=== PATIENT | female | born 1985 | race Caucasian/White ===

== ENCOUNTER → 2017-12-17 09:54 | Outpatient (CLI) | payer OTHER, MEDICAID, SELFPAY ==
[2017-12-17 11:37] LABS: Alanine Aminotransferase 17 IU/L (9-52); Albumin 3.4 g/dL (3.5-5.0); Alkaline Phosphatase 61 U/L (38-126); Aspartate Aminotransferase 11 IU/L (14-36); Bilirubin Total 0.2 mg/dL (0.2-1.3); Blood Urea Nitrogen 7 mg/dL (7-17); Calcium 9.4 mg/dL (8.4-10.2); Carbon Dioxide 23 mmol/L (22-32); Chloride 103 mmol/L (98-107); Estimated Glomerular Filt Rate > 60.0 mL/min (>60); Globulin 3.3 g/dL (1.7-4.1); Glucose 144 mg/dL (70-100); HEMOLYSIS < 15 (0-50); Potassium 3.9 mmol/L (3.4-5.1); Sodium 137 mmol/L (137-145); Total Protein 6.7 g/dL (6.3-8.2)
[2017-12-17 16:03] LABS: Collection Time Urine 24 Hours; Protein (Total) Urine Random 18 mg/dL (0-12); Total Protein 24 Hour Urine 540 mg/day (42-225); Total Volume Urine 3000 mL
== END ==
PROVIDERS: PCP Family Medicine; Visit Provider Family Medicine
DX: I10 Essential (primary) hypertension (principal); Z34.83 Encounter for supervision of other normal pregnancy, third trimester
CPT/HCPCS: 36415; 80053; 84156

== ENCOUNTER 2017-12-23 13:58 | Outpatient (CLI) | payer OTHER, MEDICAID, SELFPAY ==
--- NOTE | 2017-12-23 15:22 | PM.OBTRLD ---
Visit Information Visit Information Date of evaluation: 12/23/17 Primary OB Provider: Rosalva Linn On-call OB Provider: Rosalva Linn Reason for Evaluation: Yes non-stress test PFSH Surgical History Salpingo-oophoritis following molar or ectopic (Resolved 2013) Status post knee surgery (Resolved 2001) Status post knee surgery (Resolved 2003) Social History Smoking Status: Former smoker Evaluation Evaluation Baseline heart rate: 130 Variability: Moderate (11-25) monitor accelerations: Present monitor decelerations: Absent Category of Tracing: I Diagnosis, Plan/Disposition Final Diagnosis (1) Essential hypertension: Current Visit: Yes Status: Suspected (2) Proteinuria: Current Visit: Yes Status: Acute (3) Supervision of high risk in third trimester: Current Visit: Yes Status: Acute Plan/Disposition Plan: Continue twice weekly NST with weekly [facility] Disposition: home
== END 2017-12-23 15:30 | disposition home or self-care (01) ==
LOC: LABOR 14:53 → OB 12-24 14:50
PROVIDERS: Family Provider Family Medicine; PCP Family Medicine; Visit Provider Family Medicine
DX: O16.3 Unspecified maternal hypertension, third trimester (principal); Z3A.32 32 weeks gestation of pregnancy
CPT/HCPCS: 59025; G0378; G0379

== ENCOUNTER 2017-12-26 09:55 | Outpatient (CLI) | payer OTHER, MEDICAID, SELFPAY ==
--- NOTE | 2017-12-26 11:06 | PM.OBTRLD ---
Visit Information Visit Information Date of evaluation: 12/26/17 Primary OB Provider: Rosalva Linn Reason for Evaluation: Yes non-stress test PFSH Medical History Supervision of high risk in third trimester (Acute) Proteinuria (Acute) Essential hypertension (Suspected 07/23/16) Surgical History Salpingo-oophoritis following molar or ectopic (Resolved 2013) Status post knee surgery (Resolved 2001) Status post knee surgery (Resolved 2003) Social History Smoking Status: Former smoker Evaluation Evaluation Baseline heart rate: 145 Variability: Moderate (11-25) monitor accelerations: Present monitor decelerations: Absent Diagnosis, Plan/Disposition Plan/Disposition Plan: Reactive NST Discharge to home Continue twice weekly NST with weekly [facility] Disposition: home
== END 2017-12-26 11:10 | disposition home or self-care (01) ==
LOC: LABOR 10:51 → OB 14:29
PROVIDERS: Family Provider Family Medicine; PCP Family Medicine; Visit Provider Family Medicine
DX: O26.23 Pregnancy care for patient with recurrent pregnancy loss, third trimester (principal); Z3A.33 33 weeks gestation of pregnancy
CPT/HCPCS: 59025; G0378; G0379

== ENCOUNTER 2017-12-30 14:01 | Observation (INO) | payer OTHER, MEDICAID, SELFPAY ==
--- NOTE | 2017-12-30 15:29 | PM.OBTRLD ---
Visit Information Visit Information Date of evaluation: 12/30/17 Primary OB Provider: Rsoalva Linn On-call OB Provider: Rosalva Linn Reason for Evaluation: Yes non-stress test Comments/Additional reasons for admission: pre-eclampsia PFSH Medical History Pre-eclampsia (Acute) Proteinuria (Acute) Essential hypertension (Suspected 07/23/16) Surgical History Salpingo-oophoritis following molar or ectopic (Resolved 2013) Status post knee surgery (Resolved 2001) Status post knee surgery (Resolved 2003) Social History Smoking Status: Former smoker Evaluation Evaluation Baseline heart rate: 140 Variability: Moderate (11-25) monitor accelerations: Present monitor decelerations: Absent
== END 2017-12-30 15:32 | disposition home or self-care (01) ==
PROVIDERS: Admitting Provider Family Medicine; PCP Family Medicine; Visit Provider Family Medicine
DX: O14.93 Unspecified pre-eclampsia, third trimester (principal); Z3A.33 33 weeks gestation of pregnancy; O16.3 Unspecified maternal hypertension, third trimester
CPT/HCPCS: 59025; G0378; G0379

== ENCOUNTER 2018-01-02 10:36 | Observation (INO) | payer OTHER, MEDICAID, SELFPAY ==
--- NOTE | 2018-01-02 12:36 | PM.OBTRLD ---
Visit Information Visit Information Date of evaluation: 01/02/18 Primary OB Provider: Rosalva Linn On-call OB Provider: Rosalva Linn Reason for Evaluation: Yes non-stress test Comments/Additional reasons for admission: NST for pre-eclampsia [facility] Medical History Pre-eclampsia (Acute) Proteinuria (Acute) Essential hypertension (Suspected 07/23/16) Surgical History Salpingo-oophoritis following molar or ectopic (Resolved 2013) Status post knee surgery (Resolved 2001) Status post knee surgery (Resolved 2003) Social History Smoking Status: Former smoker Evaluation Evaluation Baseline heart rate: 145 Variability: Moderate (11-25) monitor accelerations: Present monitor decelerations: Absent Diagnosis, Plan/Disposition Final Diagnosis (1) Pre-eclampsia: Current Visit: No Status: Acute (2) Supervision of high risk in third trimester: Current Visit: No Status: Acute Plan/Disposition Plan: Continue twice weekly NST OB Disposition: home
== END 2018-01-02 12:42 | disposition home or self-care (01) ==
PROVIDERS: Admitting Provider Family Medicine; Family Provider Family Medicine; PCP Family Medicine; Visit Provider Family Medicine
DX: O14.93 Unspecified pre-eclampsia, third trimester (principal); Z3A.34 34 weeks gestation of pregnancy
CPT/HCPCS: 36415; 80053; 85025; G0378; G0379

== ENCOUNTER → 2018-01-02 12:44 | Outpatient (CLI) | payer OTHER, MEDICAID, SELFPAY ==
[2018-01-02 13:23] LABS: Add Manual Diff / Slide Review NO; Basophils Percent Auto 0.2 % (0-2); Eosinophils Percent Auto 1.1 % (2-4); Hematocrit 32.3 % (36-46); Hemoglobin 10.7 g/dL (12.0-16.0); Lymphocytes Percent Auto 16.2 % (25-40); Mean Corpuscular HGB Conc 33.1 % (30-36); Mean Corpuscular Hemoglobin 27.2 PG (26-34); Mean Corpuscular Volume 82.1 fL (80-100); Monocytes Percent Auto 7.2 % (3-14); Neutrophils Absolute Auto 9100 /uL (3000-5900); Neutrophils Percent Auto 75.3 % (50-75); Platelet Count 248 X10^3/uL (150-400); Red Blood Cell Count 3.93 X10^6/uL (4.0-5.2); Red Cell Distribution Width 14.3 % (11.6-14.8); White Blood Cell Count 12.1 X10^3/uL (4.5-11.0)
[2018-01-02 13:38] LABS: Alanine Aminotransferase 17 IU/L (9-52); Albumin 3.3 g/dL (3.5-5.0); Alkaline Phosphatase 70 U/L (38-126); Aspartate Aminotransferase 12 IU/L (14-36); Bilirubin Total 0.2 mg/dL (0.2-1.3); Blood Urea Nitrogen 7 mg/dL (7-17); Calcium 9.1 mg/dL (8.4-10.2); Carbon Dioxide 23 mmol/L (22-32); Chloride 104 mmol/L (98-107); Estimated Glomerular Filt Rate > 60.0 mL/min (>60); Globulin 3.3 g/dL (1.7-4.1); Glucose 98 mg/dL (70-100); HEMOLYSIS < 15 (0-50); Potassium 3.9 mmol/L (3.4-5.1); Sodium 138 mmol/L (137-145); Total Protein 6.6 g/dL (6.3-8.2)
== END ==
PROVIDERS: PCP Family Medicine; Visit Provider Family Medicine
DX: O14.90 Unspecified pre-eclampsia, unspecified trimester (principal)
CPT/HCPCS: 36415; 80053; 85025

== ENCOUNTER 2018-01-06 13:32 | Outpatient (CLI) | payer OTHER, MEDICAID, SELFPAY ==
--- NOTE | 2018-01-06 14:16 | PM.OBTRLD ---
Visit Information Visit Information Date of evaluation: 01/06/18 Primary OB Provider: Rosalva Linn Reason for Evaluation: Yes non-stress test PFSH Social History Smoking Status: Former smoker Evaluation Evaluation Baseline heart rate: 135 Variability: Moderate (11-25) monitor accelerations: Present monitor decelerations: Absent Category of Tracing: I Diagnosis, Plan/Disposition Final Diagnosis (1) Supervision of high risk in third trimester: Current Visit: No Status: Acute (2) Pre-eclampsia: Current Visit: No Status: Acute Plan/Disposition Plan: continue twice weekly NST with weekly [facility] OB Disposition: home
== END 2018-01-06 14:20 | disposition home or self-care (01) ==
LOC: OB 01-08 06:49 → LABOR 01-08 06:49
PROVIDERS: PCP Family Medicine; Visit Provider Family Medicine
DX: Z34.83 Encounter for supervision of other normal pregnancy, third trimester (principal); Z3A.34 34 weeks gestation of pregnancy
CPT/HCPCS: 59025; G0378; G0379

== ENCOUNTER 2018-01-13 14:10 | Outpatient (CLI) | payer OTHER, MEDICAID, SELFPAY ==
--- NOTE | 2018-01-13 14:37 | PM.OBTRLD ---
Visit Information Visit Information Date of evaluation: 01/13/18 Primary OB Provider: Rosalva Linn Reason for Evaluation: Yes non-stress test PFSH Social History Smoking Status: Former smoker Evaluation Evaluation Baseline heart rate: 140 Variability: Moderate (11-25) monitor accelerations: Present monitor decelerations: Absent Category of Tracing: I Diagnosis, Plan/Disposition Final Diagnosis (1) Pre-eclampsia: Current Visit: No Status: Acute (2) Supervision of high risk in third trimester: Current Visit: No Status: Acute Plan/Disposition Plan: continue twice weekly NST with weekly [facility] OB Disposition: home
== END 2018-01-13 14:58 | disposition home or self-care (01) ==
LOC: LABOR 14:19 → OB 01-15 10:08
PROVIDERS: PCP Family Medicine; Visit Provider Family Medicine
DX: O16.3 Unspecified maternal hypertension, third trimester (principal); Z3A.35 35 weeks gestation of pregnancy
CPT/HCPCS: 59025; 87653; G0378; G0379

== ENCOUNTER → 2018-01-13 15:56 | Outpatient (CLI) | payer OTHER, MEDICAID, SELFPAY ==
[2018-01-14 12:48] LABS: Strep Grp B PCR NEG for Grp B Strep
== END ==
PROVIDERS: Family Provider Family Medicine; PCP Family Medicine; Visit Provider Family Medicine
DX: O09.93 Supervision of high risk pregnancy, unspecified, third trimester (principal)
CPT/HCPCS: 87653

== ENCOUNTER → 2018-01-16 10:12 | Outpatient (CLI) | payer OTHER, MEDICAID, SELFPAY ==
--- NOTE | 2018-01-16 11:09 | PM.OBTRLD ---
Visit Information Visit Information Date of evaluation: 01/16/18 Primary OB Provider: Rosalva Linn Reason for Evaluation: Yes non-stress test PFSH Medical History Pre-eclampsia (Acute) Proteinuria (Acute) Essential hypertension (Suspected 07/23/16) Ectopic (Resolved 2013) Surgical History Status post knee surgery (Resolved 2001) Status post knee surgery (Resolved 2003) Social History Smoking Status: Former smoker Evaluation Evaluation Baseline heart rate: 145 Variability: Moderate (11-25) monitor accelerations: Present monitor decelerations: Absent Category of Tracing: I Diagnosis, Plan/Disposition Final Diagnosis (1) Pre-eclampsia: Current Visit: No Status: Acute (2) Supervision of high risk in third trimester: Current Visit: No Status: Acute Plan/Disposition Plan: Continue twice weekly NST with weekly [facility] OB Disposition: home
== END | disposition home or self-care (01) ==
PROVIDERS: PCP Family Medicine; Visit Provider Family Medicine
DX: O14.93 Unspecified pre-eclampsia, third trimester (principal); Z3A.36 36 weeks gestation of pregnancy
CPT/HCPCS: 59025; G0378; G0379

== ENCOUNTER → 2018-01-20 15:29 | Outpatient (CLI) | payer OTHER, MEDICAID, SELFPAY ==
--- NOTE | 2018-01-20 17:06 | PM.OBTRLD ---
Visit Information Visit Information Date of evaluation: 01/20/18 Primary OB Provider: Rosalva Linn Reason for Evaluation: Yes non-stress test Comments/Additional reasons for admission: pre-eclampsia PFS Medical History Pre-eclampsia (Acute) Proteinuria (Acute) Essential hypertension (Suspected 07/23/16) Ectopic (Resolved 2013) Surgical History Status post knee surgery (Resolved 2001) Status post knee surgery (Resolved 2003) Social History Smoking Status: Former smoker Evaluation Evaluation Baseline heart rate: 145 Variability: Moderate (11-25) monitor accelerations: Present monitor decelerations: Absent Category of Tracing: I Diagnosis, Plan/Disposition Final Diagnosis (1) Pre-eclampsia: Current Visit: No Status: Acute (2) Supervision of high risk in third trimester: Current Visit: No Status: Acute Plan/Disposition Plan: continue twice weekly NST, IOL 01/26 OB Disposition: home
== END | disposition home or self-care (01) ==
LOC: AC 15:44 → LABOR 16:43 → OB 01-27 06:30
PROVIDERS: PCP Family Medicine; Visit Provider Family Medicine
DX: O14.93 Unspecified pre-eclampsia, third trimester (principal); Z3A.36 36 weeks gestation of pregnancy
CPT/HCPCS: 59025; 59050; G0378; G0379

== ENCOUNTER → 2018-01-23 16:02 | Outpatient (CLI) | payer OTHER, MEDICAID, SELFPAY ==
--- NOTE | 2018-01-23 16:52 | PM.OBTRLD ---
Visit Information Visit Information Date of evaluation: 01/23/18 Primary OB Provider: Rosalva Linn Reason for Evaluation: Yes non-stress test PFSH Medical History Pre-eclampsia (Acute) Proteinuria (Acute) Essential hypertension (Suspected 07/23/16) Ectopic (Resolved 2013) Surgical History Status post knee surgery (Resolved 2001) Status post knee surgery (Resolved 2003) Social History Smoking Status: Former smoker Evaluation Evaluation Baseline heart rate: 140 Variability: Moderate (11-25) monitor accelerations: Present monitor decelerations: Absent Category of Tracing: I Diagnosis, Plan/Disposition Final Diagnosis (1) Supervision of high risk in third trimester: Current Visit: No Status: Acute (2) Pre-eclampsia: Current Visit: No Status: Acute Plan/Disposition Plan: IOL 01/26/18 OB Disposition: home
== END | disposition home or self-care (01) ==
LOC: LABOR 17:14 → OB 01-27 06:31
PROVIDERS: Family Provider Family Medicine; PCP Family Medicine; Visit Provider Family Medicine
DX: O14.93 Unspecified pre-eclampsia, third trimester (principal); Z3A.37 37 weeks gestation of pregnancy
CPT/HCPCS: 59025; 84112; G0378; G0379

== ENCOUNTER 2018-01-26 18:18 | Inpatient (IN) | payer OTHER, MEDICAID, SELFPAY ==
[2018-01-26] MEDS: LACTATED RINGERS 1,000 ML 125 ML IV (20:30)
[2018-01-26 21:11] LABS: Add Manual Diff / Slide Review NO; Basophils Percent Auto 0.2 % (0-2); Eosinophils Percent Auto 1.2 % (2-4); Hematocrit 31.8 % (36-46); Hemoglobin 10.4 g/dL (12.0-16.0); Lymphocytes Percent Auto 16.9 % (25-40); Mean Corpuscular HGB Conc 32.8 % (30-36); Mean Corpuscular Hemoglobin 26.7 PG (26-34); Mean Corpuscular Volume 81.4 fL (80-100); Monocytes Percent Auto 9.8 % (3-14); Neutrophils Absolute Auto 9400 /uL (3000-5900); Neutrophils Percent Auto 71.9 % (50-75); Platelet Count 240 X10^3/uL (150-400); Red Blood Cell Count 3.91 X10^6/uL (4.0-5.2); Red Cell Distribution Width 14.4 % (11.6-14.8)
[2018-01-26 21:24] LABS: Aspartate Aminotransferase 14 IU/L (14-36); Blood Urea Nitrogen 6 mg/dL (7-17); Estimated Glomerular Filt Rate > 60.0 mL/min (>60); Uric Acid 4.3 mg/dL (2.5-6.2)
[2018-01-26] MEDS: CALCIUM CARBONATE 500 MG TAB PO (21:30)
[2018-01-26] MEDS: miSOPROStol 25 MCG TABLET VAG (21:45)
[2018-01-26] MEDS: ZOLPIDEM 5 MG TABLET PO (22:56)
[2018-01-26 23:47] VITALS: BP 124/72
[2018-01-27] MEDS: miSOPROStol 25 MCG TABLET VAG (03:00)
[2018-01-27] MEDS: CALCIUM CARBONATE 500 MG TAB PO ×2 (03:25→12:58)
--- NOTE | 2018-01-27 07:54 | PM.OBHP.1 ---
OB HPI Date/Time Date of admission: 01/26/18 Date Patient Seen: 01/27/18 Time Patient Seen: 07:40 History of Present Illness Chief complaint: OBS : 5 Para: 2 Estimated Date of Delivery: 02/11/18 Estimated Gestational Age (weeks): 37w6d Narrative: Yovana Rubin is a 32 year old woman at 37w6d who presented for IOL for preeclampsia. Her BPS have been persistently elevated, but not to severe range, at home. She denies any vision changes, RUQ pain, headaches. She has ongoing LE edema, not significantly worse compared to previously. She has been feeling baby move regularly. Indications Indication for induction OB: other (pre-eclampsia) History of Present care: good care Dating criteria: LMP confirmed by 1st trimester US Ultrasounds: normal 1st trimester US and normal mid trimester US Obstetrical complications: preeclampsia Medical complications: cardiovascular (chronic HTN), psychiatric (depression) and other (anemia) Preadmission Labs Blood type: A (-) negative -: Antibody screen: negative, GBS status: negative, HBsAG: negative, HIV: negative and RPR/VDLR: negative HCT: 31.6 HCAB: negative Integrated screen: Negative Urine: negative 1 hr GTT: 148 3 hr GTT: 1 hr (146), 2 hr (175) and 3 hr (88) Fasting blood glucose: 85 Prior (ies) History: 11/03/2008 - at 39wks, complicated by gestational HTN, [id number] 2012 - spontaneous 2014 - ectopic , ruptured, surgical intervention, 9lbs 03/29/16 - at 40wks, Evaluation Evaluation Baseline heart rate: 150 Variability: Moderate (11-25) monitor accelerations: Absent monitor decelerations: Absent Category of Tracing: I Cervical dilation (cm): 3 Cervical effacement (%): 30 station: -3 Laboratory results: Laboratory Tests 01/26/18 01/26/18 01/26/18 19:17 20:58 21:03 WBC 13.0 H RBC 3.91 L Hgb 10.4 L Hct 31.8 L MCV 81.4 MCH 26.7 MCHC 32.8 RDW 14.4 Plt Count 240 Neut % (Auto) 71.9 Lymph % (Auto) 16.9 L [place] % (Auto) 9.8 Eos % (Auto) 1.2 L Baso % (Auto) 0.2 Neut # (Auto) 9400 H BUN 6 L Creatinine 0.50 L Estimated GFR > 60.0 BUN/Creatinine Ratio 12.0 Uric Acid 4.3 AST 14 Blood Type A Negative Antibody Screen Negative Comments: monitoring difficult due to body habitus PFSH Medical History Pre-eclampsia (Acute) Proteinuria (Acute) Essential hypertension (Suspected 07/23/16) Ectopic (Resolved 2013) Surgical History Status post knee surgery (Resolved 2001) Status post knee surgery (Resolved 2003) Social History Smoking Status: Former smoker Meds Home Medications Medication Instructions Recorded Confirmed Type albuterol sulfate 3 ml INH TIDP PRN #1 box 07/16/16 11/21/17 Rx trazodone 100 mg PO HS #30 tab 11/25/16 11/21/17 Rx cyclobenzaprine 10 mg PO HS #30 tab 01/01/17 11/21/17 Rx nicotine 21 mg TOPICAL QDAYP PRN #30 patch 02/24/17 11/21/17 Rx venlafaxine 150 mg PO QDAY #30 cap 02/24/17 11/21/17 Rx albuterol sulfate [Ventolin HFA] 1 - 2 puff INH SEE INSTRUCTIONS #8 06/09/17 11/21/17 Rx gm amoxicillin-pot clavulanate 875 mg PO BID #28 tab 10/06/17 11/21/17 Rx [Augmentin] Allergies Allergy/AdvReac Type Severity Reaction Status Date / Time No Known Drug Allergies Allergy Unverified 11/21/17 12:32 Review of Systems Review of Systems All systems reviewed & are unremarkable except as noted in HPI and below Exam Const General: cooperative, healthy appearing, comfortable, well developed and well groomed Nutritional Appearance: obese Orientation: alert, awake and oriented x3 Resp Auscultation: clear to auscultation bilaterally Cardio Rate: regular rate Rhythm: regular rhythm Heart Sounds: no murmurs GI Palpation: soft and No tender Objective Labs Result Diagrams: 01/26/18 19:17 01/26/18 21:03 Labs: Laboratory Results - last 24 hr 01/26/18 01/26/18 01/26/18 19:17 20:58 21:03 WBC 13.0 H RBC 3.91 L Hgb 10.4 L Hct 31.8 L MCV 81.4 MCH 26.7 MCHC 32.8 RDW 14.4 Plt Count 240 Neut % (Auto) 71.9 Lymph % (Auto) 16.9 L [place] % (Auto) 9.8 Eos % (Auto) 1.2 L Baso % (Auto) 0.2 Neut # (Auto) 9400 H BUN 6 L Creatinine 0.50 L Estimated GFR > 60.0 BUN/Creatinine Ratio 12.0 Uric Acid 4.3 AST 14 Blood Type A Negative Antibody Screen Negative Assessment and Plan (1) Supervision of high risk in third trimester: Current visit: No Status: Acute (2) Pre-eclampsia: Qualifiers: Trimester: third trimester Qualified Code(s): O14.93 - Unspecified pre-eclampsia, third trimester Current visit: No Status: Acute (3) 37 weeks gestation of : Current visit: Yes Status: Acute (4) Depression: Qualifiers: Depression Type: major depressive disorder Major depression recurrence: recurrent Active/Remission status: in full remission Qualified Code(s): F33.42 - Major depressive disorder, recurrent, in full remission Current visit: No Status: Chronic Plan: Plan: 32yo at 37w6d here for IOL for pre-eclampsia without severe features in the setting of chronic HTN. BPs thus far in acceptable range, none severe, and pt asymptomatic. No evidence of HELLP on labs. also complicated by depression. Pt is at very high risk for depression, as after prior did have suicidal thoughts. Followed by [facility] as well. Cervical change overnight with 2 doses of cytotec to 3cm. Bishops score now 5. GBS negative, Rh negative. - Expectant management, anticipate - Start pitocin, titrate as tolerated - Monitor BPs closely, if to severe range will need treatment and initiation of MgSO4 - Epidural for pain control when pt desires - FHT reassuring at this time - Rh negative, send cord blood after delivery - Hx of asthma, no Hemabate if bleeding - GBS negative, no antibiotics indicated
[2018-01-27] MEDS: ACETAMINOPHEN 325 MG TABLET 650 MG PO ×2 (08:00→12:13)
--- NOTE | 2018-01-27 08:13 | P.HPOB_ITS ---
OB HPI Date/Time Date of admission: 01/26/18 Date Patient Seen: 01/27/18 Time Patient Seen: 07:40 History of Present Illness Chief complaint: OBS : 5 Para: 2 Estimated Date of Delivery: 02/11/18 Estimated Gestational Age (weeks): 37w6d Narrative: Yovana Rubin is a 32 year old woman at 37w6d who presented for IOL for preeclampsia. Her BPS have been persistently elevated, but not to severe range, at home. She denies any vision changes, RUQ pain, headaches. She has ongoing LE edema, not significantly worse compared to previously. She has been feeling baby move regularly. Indications Indication for induction OB: other (pre-eclampsia) History of Present care: good care Dating criteria: LMP confirmed by 1st trimester US Ultrasounds: normal 1st trimester US and normal mid trimester US Obstetrical complications: preeclampsia Medical complications: cardiovascular (chronic HTN), psychiatric (depression) and other (anemia) Preadmission Labs Blood type: A (-) negative -: Antibody screen: negative, GBS status: negative, HBsAG: negative, HIV: negative and RPR/VDLR: negative HCT: 31.6 HCAB: negative Integrated screen: Negative Urine: negative 1 hr GTT: 148 3 hr GTT: 1 hr (146), 2 hr (175) and 3 hr (88) Fasting blood glucose: 85 Prior (ies) History: 11/03/2008 - at 39wks, complicated by gestational HTN, [id number] 2012 - spontaneous 2014 - ectopic , ruptured, surgical intervention, 9lbs 03/29/16 - at 40wks, Evaluation Evaluation Baseline heart rate: 150 Variability: Moderate (11-25) monitor accelerations: Absent monitor decelerations: Absent Category of Tracing: I Cervical dilation (cm): 3 Cervical effacement (%): 30 station: -3 Laboratory results: Laboratory Tests 01/26/18 01/26/18 01/26/18 19:17 20:58 21:03 WBC 13.0 H RBC 3.91 L Hgb 10.4 L Hct 31.8 L MCV 81.4 MCH 26.7 MCHC 32.8 RDW 14.4 Plt Count 240 Neut % (Auto) 71.9 Lymph % (Auto) 16.9 L [place] % (Auto) 9.8 Eos % (Auto) 1.2 L Baso % (Auto) 0.2 Neut # (Auto) 9400 H BUN 6 L Creatinine 0.50 L Estimated GFR > 60.0 BUN/Creatinine Ratio 12.0 Uric Acid 4.3 AST 14 Blood Type A Negative Antibody Screen Negative Comments: monitoring difficult due to body habitus PFSH Medical History Pre-eclampsia (Acute) Proteinuria (Acute) Essential hypertension (Suspected 07/23/16) Ectopic (Resolved 2013) Surgical History Status post knee surgery (Resolved 2001) Status post knee surgery (Resolved 2003) Social History Smoking Status: Former smoker Meds Home Medications Medication Instructions Recorded Confirmed Type albuterol sulfate 3 ml INH TIDP PRN #1 box 07/16/16 11/21/17 Rx trazodone 100 mg PO HS #30 tab 11/25/16 11/21/17 Rx cyclobenzaprine 10 mg PO HS #30 tab 01/01/17 11/21/17 Rx nicotine 21 mg TOPICAL QDAYP PRN #30 patch 02/24/17 11/21/17 Rx venlafaxine 150 mg PO QDAY #30 cap 02/24/17 11/21/17 Rx albuterol sulfate [Ventolin HFA] 1 - 2 puff INH SEE INSTRUCTIONS #8 06/09/1711/05 Rx gm amoxicillin-pot clavulanate 875 mg PO BID #28 tab 10/06/17 11/21/17 Rx [Augmentin] Allergies Allergy/AdvReac Type Severity Reaction Status Date / Time No Known Drug Allergies Allergy Unverified 11/21/17 12:32 Review of Systems Review of Systems All systems reviewed & are unremarkable except as noted in HPI and below Exam Const General: cooperative, healthy appearing, comfortable, well developed and well groomed Nutritional Appearance: obese Orientation: alert, awake and oriented x3 Resp Auscultation: clear to auscultation bilaterally Cardio Rate: regular rate Rhythm: regular rhythm Heart Sounds: no murmurs GI Palpation: soft and No tender Objective Labs Result Diagrams: 01/26/18 19:17 01/26/18 21:03 Labs: Laboratory Results - last 24 hr 01/26/18 01/26/18 01/26/18 19:17 20:58 21:03 WBC 13.0 H RBC 3.91 L Hgb 10.4 L Hct 31.8 L MCV 81.4 MCH 26.7 MCHC 32.8 RDW 14.4 Plt Count 240 Neut % (Auto) 71.9 Lymph % (Auto) 16.9 L [place] % (Auto) 9.8 Eos % (Auto) 1.2 L Baso % (Auto) 0.2 Neut # (Auto) 9400 H BUN 6 L Creatinine 0.50 L Estimated GFR > 60.0 BUN/Creatinine Ratio 12.0 Uric Acid 4.3 AST 14 Blood Type A Negative Antibody Screen Negative Assessment and Plan (1) Supervision of high risk in third trimester: Current visit: No Status: Acute (2) Pre-eclampsia: Qualifiers: Trimester: third trimester Qualified Code(s): O14.93 - Unspecified pre- eclampsia, third trimester Current visit: No Status: Acute (3) 37 weeks gestation of : Current visit: Yes Status: Acute (4) Depression: Qualifiers: Depression Type: major depressive disorder Major depression recurrence : recurrent Active/Remission status: in full remission Qualified Code(s): F33.42 - Major depressive disorder, recurrent, in full remission Current visit: No Status: Chronic Plan: Plan: 32yo at 37w6d here for IOL for pre-eclampsia without severe features in the setting of chronic HTN. BPs thus far in acceptable range, none severe, and pt asymptomatic. No evidence of HELLP on labs. also complicated by depression. Pt is at very high risk for depression, as after prior did have suicidal thoughts. Followed by [facility] as well. Cervical change overnight with 2 doses of cytotec to 3cm. Bishops score now 5. GBS negative, Rh negative. - Expectant management, anticipate - Start pitocin, titrate as tolerated - Monitor BPs closely, if to severe range will need treatment and initiation of MgSO4 - Epidural for pain control when pt desires - FHT reassuring at this time - Rh negative, send cord blood after delivery - Hx of asthma, no Hemabate if bleeding - GBS negative, no antibiotics indicated
[2018-01-27] MEDS: OXYTOCIN PREMIX 30 UNIT/500 ML PLAST..BAG IV (08:44)
[2018-01-27] MEDS: LACTATED RINGERS 1,000 ML 125 ML IV ×3 (08:46→15:52)
[2018-01-27] MEDS: ONDANSETRON 4 MG/2 ML INJ IV (15:09)
--- NOTE | 2018-01-27 15:44 | PM.OBPNLAB ---
Date/Time Date Patient Seen: 01/27/18 Time Patient Seen: 12:45 Pain Control Pain control: tolerating well Pelvic Exam Dilation (cm): 5 Effacement (%): 30 station: -2 Amniotic membrane status: Ruptured (clear fluid) Contractions Contractions on admission: none Monitor mode: External Pitocin rate (mU/min): 12 Contraction frequency (min): 3 Contraction duration (min): 1 Contraction pattern: Regular Status status: Category l Heart Rate Baseline: 150 Monitor Accelerations: Present Monitor Decelerations: Absent Monitor Variability: Moderate Assessment and Plan Assessment: induction ongoing Comments: 32yo at 37w6d here for IOL for pre-eclampsia without severe features. BP remains in normal range. AROM performed with production of clear fluid after informed consent. GBS negative, Rh positive. - Expectant management, anticipate - Continue pitocin, titrate as tolerated - Monitor BPs closely, if to severe range will need treatment and initiation of MgSO4 - Epidural for pain control when pt desires - FHT reassuring at this time - Rh negative, send cord blood after delivery - Hx of asthma, no Hemabate if bleeding - GBS negative, no antibiotics indicated
--- NOTE | 2018-01-27 19:17 | PM.OBPRVD ---
Events: Pre-Eclampsia, Rh Incompatibility and Labor Induction Delivery date: 01/27/18 Intrapartal events: Mild Preeclampsia Induction method: per misoprostol protocol Delivery augmentation: rupture of membranes and pitocin Delivery monitor: external FHT Route of delivery: Laceration description: None Estimated blood loss (mL): 200 Anesthesia type: Epidural Narrative: PROCEDURE: at 37w6d presented for IOL for preeclampsia and was admitted to Labor and Delivery. The patient progressed through the 1st stage over 5 hours. She received cytotec x2 and pitocin for induction, with AROM performed productive of clear fluid. Pain was controlled with an epidural. The patient progressed through the 2nd stage over 10 minutes and delivered a viable female infant with APGARs 9/9 at 18:24 via . The cord was clamped and cut after pulsation stopped. The perineum and vagina were inspected with no lacerations. PREPROCEDURE DIAGNOSIS: Intrauterine at 37w6d Chronic hypertension with superimposed pre-eclampsia Depression GBS negative RH negative POSTPROCEDURE DIAGNOSIS: Intrauterine at 37w6d, delivered Same as preprocedure PROCEDURE: INDUCTION: Yes LABOR AUGMENTATION: Cytotec, Pitocin ROM APPEARANCE: Clear BABY A DELIVERY TIME: 18:24 BABY A OUTCOME: Viable BABY A SEX: Female BABY A WEIGHT: [id number] BABY A PRESENTATION: Vertex BABY A NUCHAL CORD: No BABY A CORD GASES OBTAINED: No PLACENTA DELIVERY TIME: 18:34 PLACENTA APPEARANCE: Intact Baby 1: Infant gender: Female Presentation: vertex position: Right Occiput Anterior Placenta delivery description: Spontaneous cord vessel description: 3 Vessels score (1 min): 9 score (5 min): 9 Plan for aftercare: - Normal care - Send cord blood for incompatibility -
[2018-01-27] MEDS: IBUPROFEN 600 MG TABLET PO (21:25)
[2018-01-27] MEDS: OXYCODONE/ACETAMINOPHEN 5/325 TABLET 1 TAB PO (22:27)
[2018-01-27] MEDS: DERMOPLAST SPRAY 20% 60 ML 1 SPRAY TOP (22:27)
[2018-01-28 06:44] LABS: Add Manual Diff / Slide Review NO; Basophils Percent Auto 0.4 % (0-2); Eosinophils Percent Auto 0.8 % (2-4); Hematocrit 32.4 % (36-46); Hemoglobin 10.8 g/dL (12.0-16.0); Lymphocytes Percent Auto 13.1 % (25-40); Mean Corpuscular HGB Conc 33.4 % (30-36); Mean Corpuscular Hemoglobin 27.2 PG (26-34); Mean Corpuscular Volume 81.4 fL (80-100); Monocytes Percent Auto 6.5 % (3-14); Neutrophils Absolute Auto 13500 /uL (3000-5900); Neutrophils Percent Auto 79.2 % (50-75); Platelet Count 224 X10^3/uL (150-400); Red Blood Cell Count 3.99 X10^6/uL (4.0-5.2); Red Cell Distribution Width 14.8 % (11.6-14.8); White Blood Cell Count 17.1 X10^3/uL (4.5-11.0)
--- NOTE | 2018-01-28 08:56 | PM.OBPN.1 ---
Subjective - OB Interval history: Pt reports that she is feeling well this morning. She has mild cramping with , well controlled with Ibuprofen. Her lochia is decreasing appropriately. Her swelling is mildly improved from yesterday. She denies headaches, vision changes, RUQ pain. She is well without any nipple pain and good latch. She has passed flatus. [place] feeding status: exclusively breast feeding Date Patient Seen: 01/28/18 Time Patient Seen: 08:00 Exam Narrative Exam Narrative: Gen: NAD, sitting comfortably on bed, appears well CV: RRR, no murmurs Resp: clear to auscultation bilaterally Abd: soft, nontender, normoactive bowel sounds, fundus firm and below umbilicus, nondistended Ext: 1+ edema bilaterally Objective Labs Result Diagrams: 01/28/18 06:30 01/26/18 21:03 Labs: Laboratory Results - last 24 hr 01/26/18 01/28/18 01/28/18 20:58 06:30 06:30 WBC 17.1 H RBC 3.99 L Hgb 10.8 L Hct 32.4 L MCV 81.4 MCH 27.2 MCHC 33.4 RDW 14.8 Plt Count 224 Neut % (Auto) 79.2 H Lymph % (Auto) 13.1 L [place] % (Auto) 6.5 Eos % (Auto) 0.8 L Baso % (Auto) 0.4 Neut # (Auto) [id number] H Blood Type A Negative Antibody Screen Negative Maternal Bleed Cancelled Negative Assessment & Plan (1) Pre-eclampsia: Status: Acute Current Visit: No (2) 37 weeks gestation of : Status: Acute Current Visit: Yes (3) Depression: Status: Chronic Current Visit: No (4) (spontaneous vaginal delivery): Status: Acute Assessment and plan: 32yo PPD #1 s/p uncomplicated after IOL for preeclampsia without severe features. Pts BPs have remained in acceptable range off antihypertensives, remains asymptomatic. Recovering well after delivery. - Normal care - Rh negative, cord blood to be sent for incompatibility. Rhogam if needed. - Vasectomy vs tubal ligation for contraception, still deciding - Continue to monitor BPs closely Plan to d/c tomorrow morning pending BPs remain in appropriate range. Current Visit: Yes Time Spent With Patient Total time spent is greater than 50% in coordination of care (as documented) at patient's floor/unit and/or counseling patient: 25 - 35 minutes
--- NOTE | 2018-01-28 09:03 | P.PNOB_ITS ---
Subjective - OB Interval history: Pt reports that she is feeling well this morning. She has mild cramping with , well controlled with Ibuprofen. Her lochia is decreasing appropriately. Her swelling is mildly improved from yesterday. She denies headaches, vision changes, RUQ pain. She is well without any nipple pain and good latch. She has passed flatus. [place] feeding status: exclusively breast feeding Date Patient Seen: 01/28/18 Time Patient Seen: 08:00 Exam Narrative Exam Narrative: Gen: NAD, sitting comfortably on bed, appears well CV: RRR, no murmurs Resp: clear to auscultation bilaterally Abd: soft, nontender, normoactive bowel sounds, fundus firm and below umbilicus , nondistended Ext: 1+ edema bilaterally Objective Labs Result Diagrams: 01/28/18 06:30 01/26/18 21:03 Labs: Laboratory Results - last 24 hr 01/26/18 01/28/18 01/28/18 20:58 06:30 06:30 WBC 17.1 H RBC 3.99 L Hgb 10.8 L Hct 32.4 L MCV 81.4 MCH 27.2 MCHC 33.4 RDW 14.8 Plt Count 224 Neut % (Auto) 79.2 H Lymph % (Auto) 13.1 L Carson % (Auto) 6.5 Eos % (Auto) 0.8 L Baso % (Auto) 0.4 Neut # (Auto) 64789 H Blood Type A Negative Antibody Screen Negative Maternal Bleed Cancelled Negative Assessment & Plan (1) Pre-eclampsia: Status: Acute Current Visit: No (2) 37 weeks gestation of : Status: Acute Current Visit: Yes (3) Depression: Status: Chronic Current Visit: No (4) (spontaneous vaginal delivery): Status: Acute Assessment and plan: 32yo PPD #1 s/p uncomplicated after IOL for preeclampsia without severe features. Pts BPs have remained in acceptable range off antihypertensives, remains asymptomatic. Recovering well after delivery. - Normal care - Rh negative, cord blood to be sent for incompatibility. Rhogam if needed. - Vasectomy vs tubal ligation for contraception, still deciding - Continue to monitor BPs closely Plan to d/c tomorrow morning pending BPs remain in appropriate range. Current Visit: Yes Time Spent With Patient Total time spent is greater than 50% in coordination of care (as documented) at patient's floor/unit and/or counseling patient: 25 - 35 minutes
[2018-01-28] MEDS: FERROUS GLUCONATE 324 MG TABLET PO (10:22)
[2018-01-28] MEDS: PRENATAL VIT,CALC/IRON/FOLIC 1 TABLET 1 TAB PO (10:22)
[2018-01-28] MEDS: IBUPROFEN 600 MG TABLET PO (10:22)
[2018-01-28] MEDS: DOCUSATE 250 MG CAPSULE PO (10:23)
[2018-01-28] MEDS: RHO(D) IMMUNE GLOBULIN 1,500 UNIT SYRINGE 1500 UNIT IM (14:50)
[2018-01-29] MEDS: IBUPROFEN 600 MG TABLET PO ×2 (03:02→08:58)
[2018-01-29] MEDS: OXYCODONE/ACETAMINOPHEN 5/325 TABLET 1 TAB PO (03:04)
[2018-01-29] MEDS: PRENATAL VIT,CALC/IRON/FOLIC 1 TABLET 1 TAB PO (08:58)
[2018-01-29] MEDS: FERROUS GLUCONATE 324 MG TABLET PO (08:58)
[2018-01-29] MEDS: DOCUSATE 250 MG CAPSULE PO (08:58)
--- NOTE | 2018-01-29 10:10 | P.DS_ITS ---
Discharge Providers Date of admission: 01/26/18 19:17 Primary care physician: Rosalva Linn MD Consults: 01/27/18 21:03 Consult to Mechanical Lead Routine Comment: Discharge provider: Shasha Sapp DO Summary Date Patient Seen: 01/29/18 Time Patient Seen: 10:00 Hospital Course: 32 year old now 3 female s/p on 01/27/18 after IOL at 37w6d for pre- eclampsia without severe features. Delivery was uncomplicated without lacerations. Blood pressure has been reasonable without medication and patient asymptomatic. Patient is Rh negative and received Rhogam due to Rh positive status of . Patient denies complaints other than lower extremity edema. Eating, ambulating, voiding without issue. bleeding is moderate. Pain well-controlled with ibuprofen. doing well. Peripartum Data Infant Delivery Method: Natural Vaginal Laceration description: None complications: none Discharge Diagnosis (1) Pre-eclampsia: Status: Acute (2) 37 weeks gestation of : Status: Acute (3) Depression: Status: Chronic (4) (spontaneous vaginal delivery): Status: Acute Status at Discharge Functional status at discharge: independent ambulation Time Spent with Patient Total time spent providing and/or coordinating discharge services: Less than 30 minutes Objective Labs Result Diagrams: 01/28/18 06:30 01/26/18 21:03 Discharge Plan Discharge Plan Patient Disposition: Home, Self-Care Discharge Med Rec/Prescriptions Prescriptions: New ferrous gluconate 324 mg (38 mg iron) Tablet 324 mg PO DAILY Qty: 30 RF: 0 ibuprofen 600 mg Tablet 600 mg PO Q6H PRN (Reason: Pain, Mild (1-3)) Qty: 30 RF: 0 docusate sodium 250 mg Capsule 250 mg PO DAILY Qty: 30 RF: 0 ibuprofen 600 mg tablet 600 mg PO TID-QID PRN (Reason: pain) Qty: 30 RF: 0 docusate sodium 250 mg capsule 250 mg PO DAILY Qty: 30 RF: 0 Continue 1 tab tablet 1 tab PO DAILY RF: 0 Follow up/Referrals: Rosalva Linn MD [Primary Care Provider] - 2 Weeks (February 10, at 1:30pm with Dr Linn) Provider Discharge Instructions Diet: Regular Activity: No intercourse for 6 weeks Wound Care Report to your healthcare provider any signs of infection, such as:: chills, fever, increased pain and unusual drainage Visit Report/Discharge Packet Instructions: DI for Labor and Delivery, Vaginal Stand Alone Forms: Discharge: Care Visit Report Forms: Stroke Signs & Symptoms Discharge Data Primary Care Provider: Rosalva Linn Attending Provider: Rosalva Linn Admit Date/Time: 01/26/18 19:17
[2018-01-29 10:13] VITALS: BP 140/90; PULSE 81; RESP 16; TEMP 36.1
== END 2018-01-29 13:25 | disposition home or self-care (01) | DRG 774 ==
PROVIDERS: Admitting Provider Family Medicine; Family Provider Family Medicine; PCP Family Medicine; Visit Provider Family Medicine
DX: O10.92 Unspecified pre-existing hypertension complicating childbirth (principal); O36.0930 Maternal care for other rhesus isoimmunization, third trimester, not applicable or unspecified; Z37.0 Single live birth; Z3A.37 37 weeks gestation of pregnancy; D64.9 Anemia, unspecified; O99.344 Other mental disorders complicating childbirth; F32.9 Major depressive disorder, single episode, unspecified
CPT/HCPCS: 01967; 36415; 59050; 59200; 59410; 84450; 84550; 85025; 85049; 85461; 86850; 86900; 86901; G0378; G0379; J2405; J2590; J2790; J3010

== ENCOUNTER → 2019-05-04 10:49 | Outpatient (CLI) | payer OTHER, MEDICAID, SELFPAY ==
[2019-05-04 11:31] LABS: Alanine Aminotransferase 13 IU/L (9-52); Albumin 4.7 g/dL (3.5-5.0); Albumin Globulin Ratio 1.4 (1.0-2.8); Alkaline Phosphatase 64 U/L (38-126); Aspartate Aminotransferase 19 IU/L (14-36); BUN Creatinine Ratio 15.7 (6-22); Bilirubin Total 0.3 mg/dL (0.2-1.3); Blood Urea Nitrogen 11 mg/dL (7-17); Calcium 8.9 mg/dL (8.4-10.2); Carbon Dioxide 26 mmol/L (22-32); Chloride 106 mmol/L (98-107); Cholesterol 118 mg/dL (140-199); Estimated Glomerular Filt Rate > 60.0 mL/min (>60); Globulin 3.3 g/dL (1.7-4.1); Glucose 101 mg/dL (70-100); HDL Cholesterol 30 mg/dL (40-60); HEMOLYSIS < 15 (0-50); LDL Cholesterol Calculated 68 mg/dL (<100); Potassium 4.4 mmol/L (3.4-5.1); Sodium 143 mmol/L (137-145); Triglycerides 101 mg/dL (35-150)
== END ==
PROVIDERS: Family Provider Family Medicine; PCP Family Medicine; Visit Provider Family Medicine
DX: E78.00 Pure hypercholesterolemia, unspecified (principal); E78.6 Lipoprotein deficiency
CPT/HCPCS: 36415; 80053; 80061

== ENCOUNTER → 2019-08-09 11:44 | Outpatient (CLI) | payer OTHER, SELFPAY ==
[2019-08-09 12:19] LABS: Add Manual Diff / Slide Review NO; Basophils Absolute Auto 100 /uL (0-100); Basophils Percent Auto 0.4 % (0-2); Eosinophils Absolute Auto 300 /uL (0-450); Eosinophils Percent Auto 2.2 % (2-4); Hematocrit 35.2 % (36-46); Hemoglobin 11.5 g/dL (12.0-16.0); Lymphocytes Absolute Auto 2400 /uL (1100-4500); Lymphocytes Percent Auto 18.4 % (25-40); Mean Corpuscular HGB Conc 32.7 % (30-36); Mean Corpuscular Hemoglobin 25.1 PG (26-34); Mean Corpuscular Volume 76.8 fL (80-100); Monocytes Absolute Auto 700 /uL (0-900); Monocytes Percent Auto 5.6 % (3-14); Neutrophils Absolute Auto 9600 /uL (1500-7000); Neutrophils Percent Auto 73.4 % (50-75); Platelet Count 325 X10^3/uL (150-400); Red Blood Cell Count 4.58 X10^6/uL (4.0-5.2); Red Cell Distribution Width 16.4 % (11.6-14.8); White Blood Cell Count 13.1 X10^3/uL (4.5-11.0)
== END ==
PROVIDERS: PCP Family Medicine; Visit Provider Family Medicine
DX: N92.0 Excessive and frequent menstruation with regular cycle (principal)
CPT/HCPCS: 36415; 85025

== ENCOUNTER → 2019-12-27 09:45 | Outpatient (CLI) | payer OTHER, SELFPAY ==
[2019-12-27 11:11] LABS: Cholesterol 182 mg/dL (140-199); HDL Cholesterol 39 mg/dL (40-60); LDL Cholesterol Calculated 99 mg/dL (<100); Triglycerides 218 mg/dL (35-150)
[2019-12-27 11:14] LABS: Hemoglobin A1C% w Est Avg Glu 6.5 % (4.0-6.0)
== END ==
PROVIDERS: PCP Family Medicine; Referring Provider Family Medicine; Visit Provider Family Medicine
DX: R73.03 Prediabetes (principal)
CPT/HCPCS: 36415; 80061; 83036

== ENCOUNTER → 2020-03-07 10:56 | Outpatient (CLI) | payer OTHER, SELFPAY ==
--- NOTE | 2020-03-07 12:31 | DIET.PN ---
Diabetes Intake: Initial Assessment Assess: Mrs. Rubin is a 34 YOF recently diagnosed with type 2 diabetes. She reports continued weight gain since having her second of 3 children. Since diagnosis, she began making significant changes to her eating patterns and tried keto. She was not seeing results and gave up on her diet changes as well as exercise routine. 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 She endorses difficulty following healthy eating habits as she shares the cooking with her and mother who generally prepares frozen meals (pizza, nuggets, tater tots). She currently does not have a glucometer. Labs: Per pt report: A1c: 6.5 Meds: na Diet: per 24 hr recall: B: brkfst burrito; yogurt w/ fruit L: sandwich w/ chips D: frozen meals (pizza, nuggets, tater tots); bbq; casseroles Sn: granola bars; ruben crackers Wt: 308.4lb Ht: 67in BMI: 48.3 BP: 140/90 DX: Altered nutrition related laboratory values related to impaired glucose metabolism, lack of previous exposure to nutrition information as evidenced by pt report, diagnosis of diabetes, previous diet high in refined carbohydrates. Intervention: 1. Completed intake assessment. Discussed barriers to care. 2. Discussed pathophysiology of diabetes. Reviewed A1c and its correlation to blood glucose numbers. Discussed recommended BG ranges. 3. Discussed importance of self-monitoring, how often, and when to check. 4. Reviewed hyper/hypoglycemia and treatment. 5. Reviewed safe disposal of equipment (strip/lancets/insulin needles). 6. Created SMART goals for pt self-care and success. 7. Discussed program curriculum outline and class needs based on individual goals. SMART Goals: 1. Pt would like to lose 15lb (5% body weight) in the next 3 mo by exercising 5x week and limiting starchy foods from diet. Monitor/Evaluate: Anticipate good compliance. Pt will attend full DSME program. Basic Nutrition class scheduled for Mar 28. Pt would like to request extension on f/u labs until Apr to receive additional education.
== END ==
PROVIDERS: PCP Family Medicine; Referring Provider Family Medicine; Visit Provider Family Medicine
DX: E11.9 Type 2 diabetes mellitus without complications (principal); E66.9 Obesity, unspecified; Z79.84 Long term (current) use of oral hypoglycemic drugs; Z68.42 Body mass index [BMI] 45.0-49.9, adult; Z71.3 Dietary counseling and surveillance
CPT/HCPCS: G0108

== ENCOUNTER → 2020-03-07 10:58 | Outpatient (CLI) | payer OTHER, SELFPAY ==
--- NOTE | 2020-03-07 11:00 | DI.US.S_ITS ---
PROCEDURE: US PELVIC COMPLETE INDICATIONS: MENORRHAGIA TECHNIQUE: Real-time scanning was performed of the pelvic organs, with image documentation. Additional endovaginal scanning was necessary due to incomplete visualization of the adnexal and endometrial structures by transabdominal scanning. COMPARISON: [facility], , PELVIC COMPLETE, 06/19/2014, 20:40. FINDINGS: Transabdominal scanning: Limited scanning through the kidneys shows no hydronephrosis. No pathologic free abdominal or pelvic fluid. Endovaginal scanning: Uterus: Uterus is normal in size at 11.2 x 5 x 5.7 cm. The endometrium measures 8 mm in combined thickness. Ovaries: The right ovary measures 4 x 3.2 x 3.6 cm. The left ovary measures 2.8 x 2.1 x 2.5 cm. The ovaries have a normal sonographic appearance, with normal appearing cystic follicles seen. No adnexal masses are seen. IMPRESSION: Normal pelvic ultrasound. Dictated by: Oziel Workman M.D. on 03/07/2020 at 14:52 Approved by: Oziel Workman M.D. on 03/07/2020 at 14:53
== END ==
PROVIDERS: PCP Family Medicine; Referring Provider Family Medicine; Visit Provider Family Medicine
DX: N92.0 Excessive and frequent menstruation with regular cycle (principal)
CPT/HCPCS: 76830; 76856

== ENCOUNTER → 2020-04-26 10:53 | Outpatient (CLI) | payer OTHER, SELFPAY ==
--- NOTE | 2020-04-26 12:00 | DIET.PN ---
Diabetes: Healthy Eating 1 Intervention: ? Discussed pathophysiology of diabetes and impact of nutrition/diet on blood sugar control.? Discussed fed versus non-fed state.?? ? Reviewed importance of Balance, Variety, and Moderation. ? Discussed the effect of carbohydrates/protein/fat on blood sugar control.? ? Stressed importance of consistent carbohydrate intake at each meal and provided instructions for recommended servings/portions of carbohydrates/protein per meal. Provided educational material. ? Reviewed carbohydrate counting and measuring carbohydrate content via serving sizes and reading nutrition labels.? Provided handouts.?? ? Discussed the difference between simple versus complex carbohydrates and the effect of fiber on blood sugar control.? Discussed various methods to increase fiber content in diet. ? Discussed the plate method for creating more carbohydrate conscious balanced meals. ? Stressed importance of meal timing and not going >4-5 hours between meals. Encouraged adding protein to evening snack to support glucose control overnight. ? Discussed importance of making dietary habits part of lifestyle change.
[2020-04-26 12:27] LABS: Hemoglobin A1C% w Est Avg Glu 6.3 % (4.0-6.0)
== END ==
PROVIDERS: PCP Family Medicine; Referring Provider Family Medicine; Visit Provider Family Medicine
DX: E11.9 Type 2 diabetes mellitus without complications (principal); Z71.3 Dietary counseling and surveillance; Z79.4 Long term (current) use of insulin
CPT/HCPCS: 36415; 83036; G0109

== ENCOUNTER → 2020-10-19 08:40 | Outpatient (CLI) | payer OTHER, SELFPAY ==
[2020-10-19 09:58] LABS: Hemoglobin A1C% w Est Avg Glu 6.1 % (4.0-6.0)
[2020-10-19 09:59] LABS: Alanine Aminotransferase 13 IU/L (<35); Albumin 4.3 g/dL (3.5-5.0); Albumin Globulin Ratio 1.4 (1.0-2.8); Alkaline Phosphatase 73 U/L (38-126); Aspartate Aminotransferase 18 IU/L (14-36); BUN Creatinine Ratio 15.9 (6-22); Bilirubin Total 0.2 mg/dL (0.2-1.3); Blood Urea Nitrogen 13 mg/dL (7-17); Calcium 9.5 mg/dL (8.4-10.2); Carbon Dioxide 25 mmol/L (22-32); Chloride 106 mmol/L (98-107); Estimated Glomerular Filt Rate > 60.0 mL/min (>60); Globulin 3.1 g/dL (1.7-4.1); Glucose 119 mg/dL (70-100); HEMOLYSIS < 15 (0-50); Sodium 140 mmol/L (137-145); Total Protein 7.4 g/dL (6.3-8.2)
[2020-10-19 11:36] LABS: Creatinine Urine Random 134.4 mg/dL
[2020-10-19 11:40] LABS: Microalbumi Creatinin Ratio Ur 76.6 ug/mg CR (<30); Microalbumin Urine Random 10.3 mg/dL (0-1.6)
== END ==
PROVIDERS: PCP Family Medicine; Referring Provider Family Medicine; Visit Provider Family Medicine
DX: E11.9 Type 2 diabetes mellitus without complications (principal); Z79.4 Long term (current) use of insulin
CPT/HCPCS: 36415; 80053; 82043; 82570; 83036

== ENCOUNTER → 2021-04-03 15:26 | Outpatient (CLI) | payer OTHER, SELFPAY ==
[2021-04-03 16:54] LABS: Hemoglobin A1C% w Est Avg Glu 6.2 % (4.0-6.0)
== END ==
PROVIDERS: PCP Family Medicine; Referring Provider Family Medicine; Visit Provider Family Medicine
DX: E11.9 Type 2 diabetes mellitus without complications (principal); Z79.4 Long term (current) use of insulin
CPT/HCPCS: 36415; 83036

== ENCOUNTER → 2022-05-29 08:12 | Outpatient (CLI) | payer OTHER, SELFPAY ==
[2022-05-29 08:44] LABS: Add Manual Diff / Slide Review NO; Basophils Absolute Auto 100 /uL (0-100); Basophils Percent Auto 0.5 % (0-2); Eosinophils Absolute Auto 300 /uL (0-450); Eosinophils Percent Auto 2.3 % (2-4); Hematocrit 35.6 % (36-46); Hemoglobin 11.4 g/dL (12.0-16.0); Lymphocytes Absolute Auto 2800 /uL (1100-4500); Lymphocytes Percent Auto 24.9 % (25-40); Mean Corpuscular Hemoglobin 23.8 PG (26-34); Mean Corpuscular Volume 74.4 fL (80-100); Monocytes Absolute Auto 600 /uL (0-900); Monocytes Percent Auto 5.5 % (3-14); Neutrophils Absolute Auto 7600 /uL (1500-7000); Neutrophils Percent Auto 66.8 % (50-75); Platelet Count 308 X10^3/uL (150-400); Red Blood Cell Count 4.78 X10^6/uL (4.0-5.2); Red Cell Distribution Width 16.3 % (11.6-14.8); White Blood Cell Count 11.4 X10^3/uL (4.5-11.0)
[2022-05-29 08:55] LABS: Hemoglobin A1C% w Est Avg Glu 7.5 % (4.0-6.0)
[2022-05-29 09:27] LABS: Alanine Aminotransferase 22 IU/L (<35); Albumin Globulin Ratio 1.1 (1.0-2.8); Alkaline Phosphatase 73 U/L (38-126); Aspartate Aminotransferase 21 IU/L (14-36); BUN Creatinine Ratio 22.7 (6-22); Bilirubin Total 0.2 mg/dL (0.2-1.3); Blood Urea Nitrogen 15 mg/dL (7-17); Carbon Dioxide 24 mmol/L (22-32); Chloride 100 mmol/L (98-107); Cholesterol 177 mg/dL (140-199); Estimated Glomerular Filt Rate > 60 mL/min (>60); Globulin 3.5 g/dL (1.7-4.1); Glucose 161 mg/dL (70-100); HDL Cholesterol 35 mg/dL (40-60); HEMOLYSIS < 15 (0-50); LDL Cholesterol Calculated 102 mg/dL (<100); Potassium 4.6 mmol/L (3.4-5.1); Sodium 137 mmol/L (137-145); Total Protein 7.5 g/dL (6.3-8.2); Triglycerides 201 mg/dL (35-150)
[2022-05-29 09:54] LABS: Creatinine Urine Random 150.2 mg/dL
[2022-05-29 10:11] LABS: Vitamin B12 415 pg/mL (239-931)
[2022-05-29 11:07] LABS: Microalbumi Creatinin Ratio Ur 985.3 ug/mg CR (<30)
== END ==
PROVIDERS: PCP Family Medicine; Referring Provider Family Medicine; Visit Provider Family Medicine
DX: R53.83 Other fatigue (principal); E11.9 Type 2 diabetes mellitus without complications
CPT/HCPCS: 36415; 80053; 80061; 82043; 82570; 82607; 83036; 85025

== ENCOUNTER → 2022-09-18 14:39 | Outpatient (CLI) | payer OTHER, SELFPAY ==
[2022-09-18 15:06] LABS: Add Manual Diff / Slide Review NO; Basophils Absolute Auto 100 /uL (0-100); Eosinophils Absolute Auto 300 /uL (0-450); Hematocrit 33.9 % (36-46); Hemoglobin 10.8 g/dL (12.0-16.0); Lymphocytes Absolute Auto 3300 /uL (1100-4500); Lymphocytes Percent Auto 24.4 % (25-40); Mean Corpuscular HGB Conc 31.8 % (30-36); Mean Corpuscular Hemoglobin 23.1 PG (26-34); Mean Corpuscular Volume 72.5 fL (80-100); Monocytes Absolute Auto 900 /uL (0-900); Monocytes Percent Auto 6.4 % (3-14); Neutrophils Absolute Auto 9100 /uL (1500-7000); Neutrophils Percent Auto 66.2 % (50-75); Platelet Count 317 X10^3/uL (150-400); Red Blood Cell Count 4.68 X10^6/uL (4.0-5.2); Red Cell Distribution Width 16.4 % (11.6-14.8); White Blood Cell Count 13.7 X10^3/uL (4.5-11.0)
[2022-09-18 15:29] LABS: Alanine Aminotransferase 18 IU/L (<35); Albumin 4.1 g/dL (3.5-5.0); Albumin Globulin Ratio 1.2 (1.0-2.8); Alkaline Phosphatase 63 U/L (38-126); Aspartate Aminotransferase 19 IU/L (14-36); BUN Creatinine Ratio 26.3 (6-22); Bilirubin Total 0.2 mg/dL (0.2-1.3); Blood Urea Nitrogen 15 mg/dL (7-17); Calcium 9.2 mg/dL (8.4-10.2); Carbon Dioxide 24 mmol/L (22-32); Chloride 103 mmol/L (98-107); Cholesterol 187 mg/dL (140-199); Estimated Glomerular Filt Rate > 60 mL/min (>60); Globulin 3.3 g/dL (1.7-4.1); Glucose 107 mg/dL (70-100); HDL Cholesterol 31 mg/dL (40-60); HEMOLYSIS < 15 (0-50); LDL Cholesterol Calculated 120 mg/dL (<100); Potassium 4.1 mmol/L (3.4-5.1); Sodium 140 mmol/L (137-145); Total Protein 7.4 g/dL (6.3-8.2); Triglycerides 182 mg/dL (35-150)
[2022-09-18 15:30] LABS: Hemoglobin A1C% w Est Avg Glu 6.9 % (4.0-6.0)
[2022-09-18 17:14] LABS: Microalbumin Urine Random 16.6 mg/dL (0-1.6)
[2022-09-18 17:20] LABS: Creatinine Urine Random 114.8 mg/dL; Microalbumi Creatinin Ratio Ur 144.5 ug/mg CR (<30)
== END ==
PROVIDERS: PCP Family Medicine; Referring Provider Family Medicine; Visit Provider Family Medicine
DX: E11.9 Type 2 diabetes mellitus without complications (principal); I10 Essential (primary) hypertension; Z79.4 Long term (current) use of insulin; R53.83 Other fatigue
CPT/HCPCS: 36415; 80053; 80061; 82043; 82570; 83036; 85025

== ENCOUNTER → 2022-10-04 15:05 | Outpatient (CLI) | payer OTHER, SELFPAY ==
--- NOTE | 2022-10-04 15:06 | DI.US.S_ITS ---
PROCEDURE: US PELVIC COMPLETE INDICATIONS: MENORRHAGIA TECHNIQUE: Real-time scanning was performed of the pelvic organs, with image documentation. Additional endovaginal scanning was necessary due to incomplete visualization of the adnexal and endometrial structures by transabdominal scanning. COMPARISON: [facility], , US PELVIC COMPLETE, 03/07/2020, 12:56. FINDINGS: Uterus: Uterus is anteverted and normal in size at 9.7 x 4.5 x 5.6 cm. The myometrium is homogeneous. The endometrium measures 4 mm combined thickness. Ovaries: The right ovary measures 2.9 x 2.0 x 2.5 cm, with a calculated ovarian volume of 7 cc. The left ovary is not visualized, likely due to bowel gas. No adnexal mass visualized. Other: No pathologic free abdominal or pelvic fluid. IMPRESSION: 1. Left ovary not visualized likely due to bowel gas. 2. No adnexal mass visualized. 3. Unremarkable sonographic appearance of the uterus and right ovary. We strive to produce accurate, complete, and clear reports of imaging services. To assist us in improving patient care, this report was composed using standard report templates and voice recognition software. Therefore, it may contain abnormal punctuation, insertions and/or omissions. Occasional wrong-word or sound-alike substitutions may occur. Though we review the report and make efforts to correct it, we do recommend that the report be read carefully in proper context to recognize any text inaccuracies. Dictated by: Josemanuel Wilcox M.D. on 10/04/2022 at 16:12 Approved by: Josemanuel Wilcox M.D. on 10/04/2022 at 16:15
== END ==
PROVIDERS: PCP Family Medicine; Referring Provider Family Medicine; Visit Provider Family Medicine
DX: N92.0 Excessive and frequent menstruation with regular cycle (principal)
CPT/HCPCS: 76830; 76856

== ENCOUNTER → 2023-01-03 10:39 | Outpatient (CLI) | payer OTHER, SELFPAY ==
[2023-01-04 05:25] LABS: Labcorp Hemoglobin (Hb) A1c 7.3 % (4.8-5.6)
== END ==
PROVIDERS: PCP Family Medicine; Referring Provider Family Medicine; Visit Provider Family Medicine
DX: E11.9 Type 2 diabetes mellitus without complications (principal); Z79.4 Long term (current) use of insulin
CPT/HCPCS: 36415; 83036

== ENCOUNTER → 2023-05-14 13:52 | Outpatient (CLI) | payer OTHER, SELFPAY ==
[2023-05-14 14:53] LABS: Add Manual Diff / Slide Review NO; Basophils Absolute Auto 100 /uL (0-100); Basophils Percent Auto 0.5 % (0-2); Eosinophils Absolute Auto 300 /uL (0-450); Hematocrit 33.9 % (36-46); Hemoglobin 11.2 g/dL (12.0-16.0); Lymphocytes Absolute Auto 3000 /uL (1100-4500); Lymphocytes Percent Auto 20.9 % (25-40); Mean Corpuscular HGB Conc 33.1 % (30-36); Mean Corpuscular Hemoglobin 26.1 PG (26-34); Mean Corpuscular Volume 78.7 fL (80-100); Monocytes Absolute Auto 800 /uL (0-900); Monocytes Percent Auto 5.6 % (3-14); Neutrophils Absolute Auto 10300 /uL (1500-7000); Platelet Count 302 X10^3/uL (150-400); Red Blood Cell Count 4.31 X10^6/uL (4.0-5.2); Red Cell Distribution Width 15.6 % (11.6-14.8); White Blood Cell Count 14.5 X10^3/uL (4.5-11.0)
[2023-05-14 15:02] LABS: Hemoglobin A1C% w Est Avg Glu 7.7 % (4.0-6.0)
[2023-05-14 15:12] LABS: HEMOLYSIS < 15 (0-50); Iron 43 ug/dL (37-170)
[2023-05-14 15:23] LABS: Percent Iron Saturation 12 % (15-50); Total Iron Binding Capacity 353 ug/dL (265-497); Transferrin 275 mg/dL (206-381)
== END ==
PROVIDERS: PCP Family Medicine; Referring Provider Family Medicine; Visit Provider Family Medicine
DX: D64.9 Anemia, unspecified (principal); N92.0 Excessive and frequent menstruation with regular cycle
CPT/HCPCS: 36415; 83036; 83540; 83550; 85025

== ENCOUNTER → 2023-07-29 11:55 | Outpatient (CLI) | payer OTHER, SELFPAY | PROVIDERS: PCP Family Medicine; Visit Provider Family Medicine | DX: K12.2 Cellulitis and abscess of mouth (principal) | CPT/HCPCS: 87070 ==

== ENCOUNTER → 2023-07-29 13:01 | Outpatient (CLI) | payer OTHER, SELFPAY ==
[2023-07-29 14:25] LABS: Add Manual Diff / Slide Review NO; Basophils Absolute Auto 0 /uL (0-100); Basophils Percent Auto 0.4 % (0-2); Eosinophils Absolute Auto 300 /uL (0-450); Eosinophils Percent Auto 2.2 % (2-4); Hematocrit 34.8 % (36-46); Hemoglobin 11.2 g/dL (12.0-16.0); Lymphocytes Absolute Auto 2800 /uL (1100-4500); Lymphocytes Percent Auto 21.9 % (25-40); Mean Corpuscular HGB Conc 32.2 % (30-36); Mean Corpuscular Hemoglobin 25.4 PG (26-34); Monocytes Absolute Auto 800 /uL (0-900); Monocytes Percent Auto 6.1 % (3-14); Neutrophils Absolute Auto 8800 /uL (1500-7000); Neutrophils Percent Auto 69.4 % (50-75); Platelet Count 304 X10^3/uL (150-400); Red Blood Cell Count 4.41 X10^6/uL (4.0-5.2); Red Cell Distribution Width 15.2 % (11.6-14.8); White Blood Cell Count 12.7 X10^3/uL (4.5-11.0)
[2023-07-29 14:39] LABS: HEMOLYSIS < 15 (0-50); Iron 72 ug/dL (37-170)
[2023-07-29 14:43] LABS: Alanine Aminotransferase 32 IU/L (<35); Albumin 3.9 g/dL (3.5-5.0); Albumin Globulin Ratio 1.1 (1.0-2.8); Alkaline Phosphatase 59 U/L (38-126); Aspartate Aminotransferase 31 IU/L (14-36); BUN Creatinine Ratio 24.5 (6-22); Bilirubin Total 0.3 mg/dL (0.2-1.3); Blood Urea Nitrogen 13 mg/dL (7-17); Calcium 9.3 mg/dL (8.4-10.2); Carbon Dioxide 27 mmol/L (22-32); Chloride 101 mmol/L (98-107); Cholesterol 175 mg/dL (140-199); Estimated Glomerular Filt Rate > 60 mL/min (>60); Globulin 3.6 g/dL (1.7-4.1); Glucose 123 mg/dL (70-100); HDL Cholesterol 31 mg/dL (40-60); HEMOLYSIS < 15 (0-50); LDL Cholesterol Calculated 94 mg/dL (<100); Potassium 4.3 mmol/L (3.4-5.1); Sodium 136 mmol/L (137-145); Total Protein 7.5 g/dL (6.3-8.2); Triglycerides 252 mg/dL (35-150)
[2023-07-29 14:50] LABS: Percent Iron Saturation 21 % (15-50); Total Iron Binding Capacity 338 ug/dL (265-497); Transferrin 293 mg/dL (206-381)
[2023-07-29 14:59] LABS: Monotest Negative (Negative)
== END ==
PROVIDERS: PCP Family Medicine; Referring Provider Family Medicine; Visit Provider Family Medicine
DX: E11.9 Type 2 diabetes mellitus without complications (principal); K12.2 Cellulitis and abscess of mouth; E78.2 Mixed hyperlipidemia; D64.9 Anemia, unspecified; I10 Essential (primary) hypertension; J02.9 Acute pharyngitis, unspecified; Z79.4 Long term (current) use of insulin; Z82.49 Family history of ischemic heart disease and other diseases of the circulatory system
CPT/HCPCS: 36415; 80053; 80061; 83540; 83550; 85025; 86318; 87070

== ENCOUNTER 2023-08-15 06:16 | Day surgery (SDC) | payer OTHER, SELFPAY ==
[2023-08-13 07:38] VITALS: BMI 54.8
[2023-08-15] VITALS (7 sets, daily range): BP systolic 123–168; BP diastolic 81–101; PULSE 93–104; RESP 12–93; TEMP 36.1–36.3; O2SAT 14–98; BMI 54.8
--- NOTE | 2023-08-15 | PATH_ITS ---
[facility] Accession Number: [id number] No. of containers..01 Tissue . 01 Material submitted: . endometrium - ENDOMETRIAL CURETTINGS . 01 Diagnosis: Endometrium, Curettings: Polypoid disordered proliferative endometrium with extensive breakdown changes and shedding. Negative for significant cytologic atypia, hyperplasia, and malignancy. MRV 08/20/2023 1507 Local . 01 Comment: As part of ongoing aircraft quality control inspector, selected slides are also reviewed by [employer] pathologist, Dr. Susana Rios, who agrees with the interpretation. . 01 Electronically signed: . Landon Vazquez MD, Pathologist NPI- [id number] . 01 Gross description: . The specimen is received in formalin labeled with the patient's name, , and endometrial curettings, and consists of multiple fragments of pink-lira soft tissue admixed with blood clots aggregating to 19.4 x 3.5 x 0.6 cm. The tissue is filtered into mesh bags and entirely submitted in cassettes A1-A8. ([id number]) /NELA 08/18/2023 1152 Local . 01 Pathologist provided ICD-10: N92.0 . 01 CPT . 922788 Specimen Comment: A courtesy copy of this report has been sent to [phone] Performed at: 01 [facility] [address] [place] [address], [place], [place] [id number] MD Galileo Palmer MD Phone: [phone]
[2023-08-15] MEDS: LACTATED RINGERS 1,000 ML 21 ML IV (07:10)
--- NOTE | 2023-08-15 07:26 | PM.PREOP ---
Pre-operative Note Interval Note History & Physical reviewed/Exam performed by Physician: Yes Changes to H&P: No
[2023-08-15] MEDS: SCOPOLAMINE 1 PATCH TOP (07:34)
[2023-08-15] MEDS: ALBUTEROL/IPRATROPIUM 3 ML AMPUL INH (07:36)
--- NOTE | 2023-08-15 07:46 | P.PN_ITS ---
Subjective Subjective Interval history: Refusal of test: Patient states she is not and declines to consent to a . She was educated about the risks involved if she were . Exam Vital Signs (past 8 hours): - 08/15/23 06:50 Temperature 97.3 F L Pulse Rate 104 H Respiratory Rate 19 Blood Pressure 168/101 H Pulse Oximetry 98 Oxygen Delivery Method Room Air Oxygen Delivery Method Room Air [facility] Medical History (Updated 08/13/23 @ 10:35 by Fina Tipton RN) MARCOS (obstructive sleep apnea) (2023) Type 2 diabetes mellitus Morbid obesity (spontaneous vaginal delivery) Ectopic (2013) Pre-eclampsia Tobacco abuse (11/19/16) Essential hypertension (07/23/16) Surgical History Status post knee surgery (2003) Status post knee surgery (2001) Family History Father Hypertension Myocardial infarction Social History marital status: number of children: 3 household members: spouse and family lives independently: Yes caregiver/support person: No housing: house pets and animals: No education level: vocational occupational status: employed Smoking Status: Former smoker alcohol intake: former substance use type: does not use eating out: 1-3 times/week Type(s) of exercise: walking and bicycling
--- NOTE | 2023-08-15 08:29 | SUR.OPER ---
Lithotomy on padded OR bed, head on pillow, arms secured on padded arm boards at <90 degrees abduction. Legs secured in padded yellow fins stirrups. Folded blankets under patients torso per Anesthesia.
--- NOTE | 2023-08-15 09:04 | PM.OP.1 ---
Operative Date/Time/Diagnoses Date of procedure: 08/15/23 Time of procedure: 09:04 Pre-op diagnosis: Menorrhagia with regular cycle Post-op diagnosis: same Procedure & Clinicians Procedure: Hysteroscopy with endometrial curettage and attempt at NovaSure ablation Same procedure as scheduled: Yes Indications: Menorrhagia with regular cycle Surgeon: Tessy Thomas Click Yes if Unassisted: Yes Anesthesia Type: General Operative Notes Findings: Thickened endometrium but no obvious intrauterine pathology. On initial exam the cervix was allow easy passage of a #8 Hegar dilator. Possible incomplete ablation of the lining due to the inability to keep a vacuum with how patulous her cervix was. Closure Type: not applicable Specimen(s): other (Endometrial curettings) Estimated Blood Loss (mL): 35 Blood products transfused: none Procedure in detail: The patient was brought to the operating room where she underwent general anesthesia. She was placed in low stirrups She was prepped and draped in usual sterile fashion with pulsatile stockings in place and functional, warming in place. Her bladder was drained with in and out catheter. A single-tooth tenaculum was placed on the anterior lip of the cervix and the #8 Hegar dilator passed easily through the cervical os. A endometrial curettage was performed. The endometrial curettage was sent to pathology. The NovaSure sound was used to determine the length of the uterus which was >6.5 cm. This was set on the NovaSure device. The device was placed in the uterus and the width determined to be 4.5 cm. The length and width were entered into the NovaSure machine. The plunger was pushed to the cervix to effect a good vacuum seal. This was documented by the machine after several attempts. Cauterization was done with a total power 161. Partially through the procedure the device quit and was advised to replace array. This was performed and a 2nd attempt at cauterization was performed. Total time 51 seconds but again failed to finish the procedure. The NovaSure array was pulled back into the device and then the device removed. Replacement of the hysteroscope showed charring throughout the entire uterine lining. Patient tolerated the procedure well. Counts of instruments and sponges were correct. Patient went to recovery room in stable condition. Complications: none Post-operative Condition: stable Disposition: same day surgery Plan for aftercare: Home when awake and stable. Patient to take Provera 20 mg daily for the next 6 weeks to try to increase chance of success with the ablation.
[2023-08-15] MEDS: ONDANSETRON 4 MG/2 ML INJ IV (09:12)
[2023-08-15] MEDS: hydrOXYzine 50 MG/ML INJ 25 MG IM (09:13)
--- NOTE | 2023-08-15 09:20 | SUR.PHASEI ---
received to PACU after general anesthesia. Airway patent, self maintained. Report from LUTHER Santacruz and Dr San.
--- NOTE | 2023-08-15 09:21 | SUR.PHASEI ---
Pt nauseated. Ice pack placed behind neck, zofran and hydralazine given. Aromatherapy initiated. Cool wash cloth to forehead.
--- NOTE | 2023-08-15 09:28 | SUR.PHASEI ---
Started on incentive spirometer with good effort - up to 2500 ml and increase in O2sats to 97%.
[2023-08-15] MEDS: OXYCODONE IR 5 MG TABLET PO (09:31)
--- NOTE | 2023-08-15 10:00 | SUR.PHASEII ---
Nausea improved. Maintaining O2 sats on roomair.
== END 2023-08-15 10:06 | disposition home or self-care (01) ==
PROVIDERS: PCP Family Medicine; Referring Provider Specialist; Visit Provider Specialist
PROC: 0U5B8ZZ Destruction of Endometrium, Via Natural or Artificial Opening Endoscopic (ICD-10-PCS; CPT 58563; principal; 2023-08-15 07:45)
DX: N92.0 Excessive and frequent menstruation with regular cycle (principal); E11.9 Type 2 diabetes mellitus without complications; I10 Essential (primary) hypertension; J45.909 Unspecified asthma, uncomplicated; D64.9 Anemia, unspecified; F32.A Depression, unspecified; G47.33 Obstructive sleep apnea (adult) (pediatric); E66.9 Obesity, unspecified; Z68.43 Body mass index [BMI] 50.0-59.9, adult; Z79.84 Long term (current) use of oral hypoglycemic drugs; Z87.891 Personal history of nicotine dependence; N84.0 Polyp of corpus uteri
CPT/HCPCS: 58563; J1100; J1885; J2250; J2405; J3010; J3410; J3490

== ENCOUNTER → 2023-11-18 10:10 | Outpatient (CLI) | payer OTHER, SELFPAY ==
--- NOTE | 2023-11-18 10:11 | DI.US.S_ITS ---
PROCEDURE: US PERIPH VENOUS LOW EXTREM BI INDICATIONS: PAIN TECHNIQUE: Real-time imaging, as well as color and pulse Doppler interrogation, were performed of the deep veins of both legs from the inguinal ligament to the popliteal fossa, with documentation of the visualized calf veins. COMPARISON: None. FINDINGS: Right: The common femoral, femoral, popliteal, and the visualized calf veins are normally compressible, and free of intraluminal thrombus. Color and pulse Doppler demonstrate normal phasic intravascular flow. There is normal augmentation response to distal compression maneuver. Left: The common femoral, femoral, popliteal, and the visualized calf veins are normally compressible, and free of intraluminal thrombus. Color and pulse Doppler demonstrate normal phasic intravascular flow. There is normal augmentation response to distal compression maneuver. This study is limited by body habitus. IMPRESSION: No findings of deep venous thrombosis in either lower extremity. Dictated by: Oziel Workman M.D. on 11/18/2023 at 11:31 Approved by: Oziel Workman M.D. on 11/18/2023 at 11:31
== END ==
PROVIDERS: PCP Family Medicine; Referring Provider Family Medicine; Visit Provider Family Medicine
DX: M79.669 Pain in unspecified lower leg (principal)
CPT/HCPCS: 93970

== ENCOUNTER → 2024-03-23 11:58 | Outpatient (CLI) | payer OTHER, MEDICAID, SELFPAY ==
--- NOTE | 2024-03-23 12:00 | DI.RAD.S_ITS ---
PROCEDURE: XR LUMBAR SPINE 2-3V INDICATIONS: low back pain with radiculopathy TECHNIQUE: 3 views of the lumbar spine were acquired. COMPARISON: None. FINDINGS: Please note that this examination is limited by body habitus and imaging technique. Five non rib-bearing lumbar vertebrae are present. The vertebral body heights are preserved. The intervertebral disc heights are preserved. Mild facet arthropathy at the L4-L5 and L5-S1 levels. Straightening of the lumbar lordosis. Mild levocurvature of the lumbar spine with the apex at L3. IMPRESSION: Mild L4-L5 and L5-S1 facet arthropathy. Otherwise, no acute radiographic abnormality of the lumbar spine. Dictated by: Vinicio Adler M.D. on 03/23/2024 at 15:39 Approved by: Vinicio Adler M.D. on 03/23/2024 at 15:41
== END ==
PROVIDERS: PCP Family Medicine; Referring Provider Family Medicine; Visit Provider Family Medicine
DX: M47.26 Other spondylosis with radiculopathy, lumbar region (principal); M47.27 Other spondylosis with radiculopathy, lumbosacral region; M54.50 Low back pain, unspecified
CPT/HCPCS: 72100

== ENCOUNTER → 2024-10-20 14:56 | Outpatient (CLI) | payer OTHER, SELFPAY ==
--- NOTE | 2024-10-25 13:31 | DIET.OUTPTC ---
Dietary Outpatient Consultation Note Consultation Date: 10/20/2024 Assessment: 38 y F referred for pre-bariatric surgery. On semaglutide with 7.7% weight loss in 1 yr per chart weights, would like to pursue bariatric surgery for further weight loss. Needs a 16 lb weight loss within 6 months. Has nausea 3x/wk at beginning of day that usually resolves by midday since the increase in dose. Would like some easy meal ideas. Daily BMs with constipation (type 1 on [place] stool chart) 2x/wk Diet recall: 5am-1 oz cheese with meds B-regular yogurt 5x/wk, breakfast on weekends with family L-turkey sandwich, 2 oranges, fruit leather or small bag chips S from work-yogurt, fruit leather, trail mix, bobos D-meat, lots of beef, breakfast for dinner, tacos, etc water or sugar free flavored water - 60-70 oz per day A1c% 6.2 on 08/31/24 Ht: 5 ft 7 in Wt: 323 lb BMI: 50.5 UBW: 350 lb 1 yr ago on 11/04/23 (-7.7% weight loss in 1 yr) Nutrition Diagnosis: Physical inactivity r/t stages of change aeb <150 minutes physical activity per week Interventions: Discussed and provided handouts on the following -Balanced meals and snacks in line with myplate, Mediterranean style of eating -Portion sizing -Education on label reading -Fiber, amounts, types -Physical activity -Overview of pre- and post surgery diet -Resources for easy meal ideas Goals- -extra 3-4 g fiber serving per day (i.e. nuts and seeds or fruit in yogurt, whole grain bread with sandwich) to support healthy bowel movements -activity 20 minutes 2-3x/wk walking or elliptical Monitoring/Evaluations: f/u 2x/month for 6 months Electronically Signed by: Brianne Tyler 10/25/24 13:31 Clinical Dietitian [address] [address]
== END ==
PROVIDERS: PCP Family Medicine; Referring Provider Family Medicine
DX: Z01.818 Encounter for other preprocedural examination (principal); E66.01 Morbid (severe) obesity due to excess calories; Z71.3 Dietary counseling and surveillance; Z68.43 Body mass index [BMI] 50.0-59.9, adult
CPT/HCPCS: 97802

== ENCOUNTER → 2024-11-05 15:33 | Outpatient (CLI) | payer OTHER, SELFPAY ==
--- NOTE | 2024-11-15 14:21 | DIET.OUTPTC ---
Dietary Outpatient Consultation Note Consultation Date: 11/05/2024 Assessment: 38 y F referred for pre-bariatric surgery. On semaglutide with 7.7% weight loss in 1 yr per chart weights, would like to pursue bariatric surgery for further weight loss. Needs a 16 lb weight loss within 6 months. Nausea from increased dose has mostly resolved. Pt reports her daughter started seeing a dietitian at [facility] over telehealth. Currently working to reduce sugar sweetened beverages and go on walks. Reports adding fiber source in yogurt like 1 serving nuts and seeds in morning and reduced incidences of constipation. Diet recall: 5am-1 oz cheese with meds B-regular yogurt with nuts and seeds 5x/wk, breakfast on weekends with family L-turkey sandwich, 2 oranges, fruit leather or small bag chips S from work-yogurt, fruit leather, trail mix, bobos D-meat, lots of beef, breakfast for dinner, tacos, etc water or sugar free flavored water - 60-70 oz per day A1c% 6.2 on 08/31/24 Ht: 5 ft 7 in Wt: 323 lb BMI: 50.5 UBW: 350 lb 1 yr ago on 11/04/23 (-7.7% weight loss in 1 yr) Nutrition Diagnosis: Physical inactivity r/t stages of change aeb <150 minutes physical activity per week Interventions: -Goals for activity -Discussed how daughter seeing peds dietitian is playing a role in her own weight loss Goals- -walking 3x/wk for 20 minutes, additional walking on path when other kids are at horse riding lessons Monitoring/Evaluations: f/u 2x/month for 6 months Electronically Signed by: Brianne Tyler 11/15/24 14:21 Clinical Dietitian [address] [id number]
== END ==
LOC: DIET 15:34
PROVIDERS: PCP Family Medicine; Referring Provider Family Medicine
DX: E66.01 Morbid (severe) obesity due to excess calories (principal); Z71.3 Dietary counseling and surveillance; Z68.43 Body mass index [BMI] 50.0-59.9, adult
CPT/HCPCS: 97803

== ENCOUNTER → 2024-11-08 15:14 | Outpatient (CLI) | payer OTHER, SELFPAY | LOC: CAR 15:14 | PROVIDERS: PCP Family Medicine; Referring Provider Family Medicine; Visit Provider Family Medicine | DX: R00.2 Palpitations (principal) | CPT/HCPCS: 93246 ==

== ENCOUNTER → 2024-11-19 15:05 | Outpatient (CLI) | payer OTHER, SELFPAY ==
--- NOTE | 2024-11-30 11:01 | DIET.OUTPTC ---
Dietary Outpatient Consultation Note Consultation Date: 11/19/2024 Assessment: 38 y F referred for pre-bariatric surgery. On semaglutide with 7.7% weight loss in 1 yr per chart weights, would like to pursue bariatric surgery for further weight loss. Needs a 16 lb weight loss within 6 months. Reports has met activity goal set last session, going for walks with daughter to park and while she plays is walking laps around park. Is often going for more than 3 walks per weeks. Daughter enjoys the walks very much. Diet recall: 5am-1 oz cheese with meds B-regular yogurt with nuts and seeds 5x/wk, breakfast on weekends with family L-turkey sandwich, 2 oranges, fruit leather or small bag chips S from work-yogurt, fruit leather, trail mix, bobos D-meat, lots of beef, breakfast for dinner, tacos, etc water or sugar free flavored water - 60-70 oz per day A1c% 6.2 on 08/31/24 Ht: 5 ft 7 in Wt: 323 lb BMI: 50.5 UBW: 350 lb 1 yr ago on 11/04/23 (-7.7% weight loss in 1 yr) Nutrition Diagnosis: (improving) Physical inactivity r/t stages of change aeb <150 minutes physical activity per week Interventions: -Discussed moderate intensity level of exercise and strength training -Reviewed dinner meals and plate method with adequate fiber Goals- -Moderate intensity walks 4x/wk 20-30 minutes Monitoring/Evaluations: f/u 2x/month for 6 months Electronically Signed by: Brianne Tyler 11/30/24 11:01 Clinical Dietitian [address] [address]
== END ==
PROVIDERS: PCP Family Medicine; Referring Provider Family Medicine
DX: E66.01 Morbid (severe) obesity due to excess calories (principal); Z71.3 Dietary counseling and surveillance; Z68.43 Body mass index [BMI] 50.0-59.9, adult
CPT/HCPCS: 97803

== ENCOUNTER → 2024-12-01 16:27 | Outpatient (CLI) | payer OTHER, SELFPAY ==
--- NOTE | 2024-12-02 11:46 | DIET.OUTPTC ---
Dietary Outpatient Consultation Note Consultation Date: 12/01/2024 Assessment: 38 y F referred for pre-bariatric surgery. On semaglutide with 7.7% weight loss in 1 yr per chart weights, would like to pursue bariatric surgery for further weight loss. Needs a 16 lb weight loss within 6 months. Lost job, won't have semaglutide without the insurance. Going on victoza instead. Should have 1 more month refill on semaglutide. Changing dinner to later in the day per [facility] diet[facility] suggested d/t managing child's BG. Is adjusting to this. Concerned regarding BG if eating this late. Is now going on walks in morning, 1 mile, and 2-3x/wk at night too with daughter. Has started doing weights w/ PT (1x/wk for 1 hour) Diet recall: B-1 oz cheese with meds L-turkey sandwich, 2 oranges/side S handful of nuts D-meat, lots of beef, breakfast for dinner, tacos, etc water or sugar free flavored water - 60-70 oz per day A1c% 6.7 on 11/30/24 Ht: 5 ft 7 in Wt: 320 lb BMI: 50.5 UBW: 350 lb 1 yr ago on 11/04/23 (-7.7% weight loss in 1 yr) Nutrition Diagnosis: (improving) Physical inactivity r/t stages of change aeb <150 minutes physical activity per week Altered nutrition related lab values r/t endocrine dysfunction aeb A1c 6.7% Interventions: -Discussed BG and using BG meter for FBG/postprandial -Reviewed diet recall d/t new schedule Goals- -Meter to check postprandial and FBG Monitoring/Evaluations: f/u 2x/month for 6 months Electronically Signed by: Brianne Tyler 12/02/24 11:46 Clinical Dietitian [address] [address]
== END ==
LOC: DIET 16:28
PROVIDERS: PCP Family Medicine
DX: E66.01 Morbid (severe) obesity due to excess calories (principal); Z71.3 Dietary counseling and surveillance; Z68.43 Body mass index [BMI] 50.0-59.9, adult
CPT/HCPCS: 97803

== ENCOUNTER → 2025-02-21 08:58 | Outpatient (CLI) | payer OTHER, SELFPAY ==
[2025-02-21 09:54] LABS: Hemoglobin A1C% w Est Avg Glu 6.6 % (4.0-6.0)
[2025-02-21 10:11] LABS: Alanine Aminotransferase 20 IU/L (<35); Albumin 4.0 g/dL (3.5-5.0); Albumin Globulin Ratio 1.3 (1.0-2.8); Alkaline Phosphatase 77 U/L (38-126); Blood Urea Nitrogen 14 mg/dL (7-17); Calcium 8.9 mg/dL (8.4-10.2); Carbon Dioxide 24 mmol/L (22-32); Chloride 104 mmol/L (98-107); Cholesterol 167 mg/dL (140-199); Estimated Glomerular Filt Rate > 60 mL/min (>60); Globulin 3.0 g/dL (1.7-4.1); Glucose 166 mg/dL (70-99); HDL Cholesterol 30 mg/dL (40-60); HEMOLYSIS < 15 (0-50); Potassium 4.5 mmol/L (3.4-5.1); Sodium 137 mmol/L (137-145); Total Protein 7.0 g/dL (6.3-8.2); Triglycerides 137 mg/dL (35-150)
[2025-02-21 10:57] LABS: Microalbumi Creatinin Ratio Ur 311.0 ug/mg CR (<30)
== END ==
PROVIDERS: PCP Family Medicine; Referring Provider Family Medicine; Visit Provider Family Medicine
DX: E11.9 Type 2 diabetes mellitus without complications (principal); Z79.4 Long term (current) use of insulin
CPT/HCPCS: 36415; 80053; 80061; 82043; 82570; 83036

== ENCOUNTER → 2025-03-30 14:02 | Outpatient (CLI) | payer OTHER, SELFPAY ==
--- NOTE | 2025-03-30 16:08 | DIET.OUTPTC ---
Dietary Outpatient Consult Consult Date: 03/30/25 Assessment:39 y F referred for pre-bariatric surgery. Weight stable now with Victoza, reports no GI side effects. Was doing Boost shakes for breakfast, unable to get again. Doing even more walking now with kids in school again; 1/2 mile there and back home to drop kids off at school, walks with daughter in evening, 3x/wk when daughter is at soccer practice/game does walk around the track. Interventions:? -Reviewed exercise and nutrition changes -Discussed alternative protein sources over boost drink to meet around that 16 g protein - 2 eggs, Frisian yogurt/cottage cheese Goals: -Continue with set goals of current diet patterns and >150 minutes moderate intensity exercise Monitoring/Evaluations:? F/u in 2wks Electronically Signed by: Brianne Tyler Clinical Dietitian [address] [id number]
== END ==
LOC: DIET 14:03
PROVIDERS: PCP Family Medicine; Referring Provider Family Medicine
DX: Z01.818 Encounter for other preprocedural examination (principal); Z71.3 Dietary counseling and surveillance; Z79.85 Long-term (current) use of injectable non-insulin antidiabetic drugs
CPT/HCPCS: 97803

== ENCOUNTER → 2025-04-13 11:26 | Outpatient (CLI) | payer OTHER, SELFPAY ==
--- NOTE | 2025-04-19 15:22 | DIET.OUTPTC ---
Dietary Outpatient Consult Consult Date: 04/13/25 Assessment:39 y F referred for pre-bariatric surgery. Still on Victoza, reports no GI side effects. Continues with the increase in physical activity. Tried protein granola bars, didn't like taste. Diet recall remains the same. Reviewed protein goals for weight loss- at least around 20-25 g protein at each meal. Pt doing 4-6 oz animal protein servings at lunch and dinner. Interventions:? -Reviewed exercise and nutrition changes -Discussed continuing to meet protein needs and reviewed Goals: -Continue with set goals of current diet patterns and >150 minutes moderate intensity exercise Electronically Signed by: Brianne Tyler Clinical Dietitian [address] [address]
== END ==
LOC: DIET 11:27
PROVIDERS: PCP Family Medicine; Referring Provider Family Medicine
DX: E66.01 Morbid (severe) obesity due to excess calories (principal); Z01.818 Encounter for other preprocedural examination; Z79.85 Long-term (current) use of injectable non-insulin antidiabetic drugs
CPT/HCPCS: 97803